=== PATIENT | female | born 1950 | race Caucasian/White ===

== ENCOUNTER 2017-10-05 08:01 | Outpatient (CLI) | payer OTHER | END 2017-10-05 08:04 | disposition home or self-care (01) | LOC: TOM 08:01 | DX: R31.1 Benign essential microscopic hematuria (principal); N28.1 Cyst of kidney, acquired ==

== ENCOUNTER 2017-10-05 08:05 | Outpatient (CLI) | payer OTHER | END 2017-10-05 08:09 | disposition home or self-care (01) | LOC: RAD 08:05 | DX: M15.8 Other polyosteoarthritis (principal); M25.551 Pain in right hip; M25.552 Pain in left hip; M46.1 Sacroiliitis, not elsewhere classified; M65.252 Calcific tendinitis, left thigh; M65.251 Calcific tendinitis, right thigh; M16.0 Bilateral primary osteoarthritis of hip ==

== ENCOUNTER 2018-04-22 10:40 | Outpatient (CLI) | payer OTHER | END 2018-04-22 10:46 | disposition home or self-care (01) | LOC: RAD 10:40 | DX: M77.31 Calcaneal spur, right foot (principal); E11.49 Type 2 diabetes mellitus with other diabetic neurological complication ==

== ENCOUNTER 2018-04-26 07:24 | Outpatient (CLI) | payer OTHER | END 2018-04-26 08:00 | disposition home or self-care (01) | LOC: NUCLEAR 07:24 | DX: I25.10 Atherosclerotic heart disease of native coronary artery without angina pectoris (principal); I11.9 Hypertensive heart disease without heart failure; E11.9 Type 2 diabetes mellitus without complications | CPT/HCPCS: 78452; 93017; A9500; J0153 ==

== ENCOUNTER 2018-11-01 09:05 | Outpatient (CLI) | payer OTHER | END 2018-11-01 09:14 | disposition home or self-care (01) | LOC: RAD 09:05 | DX: N20.0 Calculus of kidney (principal) ==

== ENCOUNTER 2019-03-21 09:23 | Outpatient (CLI) | payer OTHER | END 2019-03-21 09:27 | disposition home or self-care (01) | LOC: SONOGRAMA 09:23 | DX: D49.2 Neoplasm of unspecified behavior of bone, soft tissue, and skin (principal) ==

== ENCOUNTER 2020-02-13 10:18 | Emergency (ER) | payer OTHER ==
[~2020-02-13] VITALS: Ht 157.5 cm; Wt 76.2 kg
[2020-02-13] MEDS ORDERED: SYNTHROID100 MCG (10:37)
[2020-02-13] MEDS ORDERED: FORTAMET500 MG (10:37)
[2020-02-13] MEDS ORDERED: SYNTHROID112 MCG (10:39)
[2020-02-13] MEDS ORDERED: SINEMET 25-1001 EACH (10:39)
[2020-02-13] MEDS ORDERED: MIRAPEX0.5 MG (10:39)
[2020-02-13] MEDS ORDERED: ASPIR 8181 MG (10:40)
[2020-02-13] MEDS ORDERED: TOPROL XL50 M1 (10:40)
[2020-02-13] MEDS ORDERED: PRAVASTATIN SOD20 MG (10:40)
[2020-02-13] MEDS ORDERED: PREGABALIN75 MG (10:40)
[2020-02-13] MEDS ORDERED: PEPCID AC20 MG (10:40)
[2020-02-13] MEDS ORDERED: LODINE300 MG (10:41)
== END 2020-02-13 13:48 | disposition home or self-care (01) ==
LOC: ER 10:18
DX: S42.224A 2-part nondisplaced fracture of surgical neck of right humerus, initial encounter for closed fracture (principal); S00.83XA Contusion of other part of head, initial encounter; S70.01XA Contusion of right hip, initial encounter; S70.311A Abrasion, right thigh, initial encounter; W18.09XA Striking against other object with subsequent fall, initial encounter; Y93.89 Activity, other specified; Y92.018 Other place in single-family (private) house as the place of occurrence of the external cause; Y99.8 Other external cause status

== ENCOUNTER 2020-07-12 19:16 | Emergency (ER) | payer OTHER ==
[~2020-07-12] VITALS: Ht 157.5 cm; Wt 73.9 kg
[~2020-07-12 19:16] MED LIST: ASPIR 8181 MG; FORTAMET500 MG; LODINE300 MG; MIRAPEX0.5 MG; PEPCID AC20 MG; PRAVASTATIN SOD20 MG; PREGABALIN75 MG; SINEMET 25-1001 EACH; SYNTHROID100 MCG; SYNTHROID112 MCG; TOPROL XL50 M1
== END 2020-07-12 23:07 | disposition home or self-care (01) ==
LOC: ER 19:16
DX: K52.9 Noninfective gastroenteritis and colitis, unspecified (principal); E86.0 Dehydration; N39.0 Urinary tract infection, site not specified

== ENCOUNTER 2022-03-13 09:44 | Outpatient (CLI) | payer OTHER | END 2022-03-13 09:55 | disposition home or self-care (01) | LOC: MRI 09:44 | PROVIDERS: ATTEND Neuromusculoskeletal Medicine & OMM | DX: G90.4 Autonomic dysreflexia (principal); G20 Parkinson's disease | CPT/HCPCS: 70551 ==

== ENCOUNTER → 2023-06-18 | Outpatient (CLI) | payer OTHER | END | disposition home or self-care (01) | LOC: MRI 09:59 | PROVIDERS: ATTEND Neuromusculoskeletal Medicine & OMM | DX: F09 Unspecified mental disorder due to known physiological condition (principal); F03.90 Unspecified dementia, unspecified severity, without behavioral disturbance, psychotic disturbance, mood disturbance, and anxiety | CPT/HCPCS: 70551 ==

== ENCOUNTER 2023-09-08 12:36 | Outpatient (CLI) | payer OTHER | END 2023-09-08 12:37 | disposition home or self-care (01) | LOC: NUCLEAR 12:36 | DX: M89.9 Disorder of bone, unspecified (principal); I10 Essential (primary) hypertension; E03.9 Hypothyroidism, unspecified; E78.9 Disorder of lipoprotein metabolism, unspecified; E55.9 Vitamin D deficiency, unspecified; G62.9 Polyneuropathy, unspecified; E11.42 Type 2 diabetes mellitus with diabetic polyneuropathy; F41.9 Anxiety disorder, unspecified; M15.9 Polyosteoarthritis, unspecified ==

== ENCOUNTER 2023-11-24 09:44 | Outpatient (CLI) | payer OTHER | END 2023-11-24 09:52 | disposition home or self-care (01) | LOC: RAD 09:44 | PROVIDERS: ATTEND Internal Medicine Rheumatology | DX: M51.86 Other intervertebral disc disorders, lumbar region (principal); M25.552 Pain in left hip; M25.551 Pain in right hip ==

== ENCOUNTER 2025-03-28 12:47 | Inpatient (IN) | payer OTHER ==
[~2025-03-28] VITALS: Ht 152.4 cm; Wt 0.5 kg
--- NOTE | 2025-03-28 14:43 | NUR ---
PACIENTE ALERTA YORIENTADA X 3. REFIERE CAIDA EN NASH HOGAR ALREDEDOR DE LAS 10 AM, SE FUE DEFRENTE Y REFIERE DOLOR EN CADERA IZQ Y RODILLAS.
[2025-03-28] MEDS ORDERED: SINEMET 25-1001 EACH PO (14:45)
[2025-03-28] MEDS ORDERED: SYNTHROID75 MCG PO (14:46)
[2025-03-28] MEDS ORDERED: PRAVASTATIN SOD20 MG PO (14:47)
[2025-03-28] MEDS ORDERED: GLIMEPIRIDE2 MG (14:47)
[2025-03-28] MEDS ORDERED: VENLAFAXINE HCL75 M2 (14:48)
[2025-03-28] MEDS ORDERED: CHLORTHALIDONE25 MG PO (14:49)
[2025-03-28] MEDS ORDERED: OMEPRAZOLE-BIC1 EAC1 (14:50)
[2025-03-28] MEDS ORDERED: GALANTAMINE HBR24 MG PO (14:50)
[2025-03-28] MEDS ORDERED: ETODOLAC200 MG (14:51)
[2025-03-28] MEDS ORDERED: ABILIFY2 MG (14:51)
[2025-03-28] MEDS ORDERED: ACETAMINOPHEN 500 MG GEL..CAP PO ONE (15:30)
[2025-03-28] MEDS ORDERED: ORPHENADRINE CITRATE 30 MG/ML AMPUL IM ONE (15:30)
--- NOTE | 2025-03-28 16:44 | NUR ---
SE EDUCA ACERCA DE TX ORDENADO Y REFIERE ENTENDER. SE ADMINISTRAN MEDICAMENTOS LILLY ORDEN MEDICA.
--- NOTE | 2025-03-28 20:31 | NUR ---
SE CANALIZA Y COLECTAN MUESTRAS DE LABORATORIO MEDIANTE MEDIDAS ASEPTICAS. SE BRE ENVASE DE UA.
[2025-03-28 20:41] LABS: BASO % 0.3 % (0.1-1.2); EOS # 0.10 (0.04-0.54); EOS % 1.1 % (0.7-7.0); LYMPH # 1.98 (1.18-3.74); LYMPH % 22.7 % (19.3-53.1); MEAN PLATELET VOLUME 9.40 fl (9.4-12.4); MONO # 0.56 (0.24-0.82); MONO % 6.4 % (4.7-12.5); NEUT # 6.03 (1.56-6.13); NEUT % 69.0 % (34.0-71.1); RED CELL DISTRIBUTION WIDTH 11.9 % (11.6-14.4)
[2025-03-28 20:57] LABS: INR 1.05
[2025-03-28 21:02] LABS: ALT/SGPT 8.0 U/L (12-78); AST/SGOT 27.0 U/L (15-37); BILIRUBIN TOTAL 0.67 mg/dL (0.3-1.2); BUN CREA RATIO 26.0 (7.0-25.0); CREATININE SERUM 0.91 mg/dL (0.55-1.02); GFR 60.6; GLOBULINA 3.8 G/DL (2.4-3.5)
[2025-03-28 21:04] LABS: OSMOLALITY SERUM 277.0 MOSM/KG (275-295)
[2025-03-28 21:08] LABS: GLUCOSE FASTING 50.0 mg/dL (65-100)
[2025-03-28] MEDS ORDERED: POTASSIUM CHLORIDE IN WATER 100 ML IV SCH (21:23)
[2025-03-28 21:32] LABS: URINE APPEARANCE Clear; URINE BILIRRUBIN Negative (NEGATIVE); URINE BLOOD Negative; URINE COLOR Yellow; URINE GLUCOSE Negative (NEGATIVE); URINE KETONE Trace (NEGATIVE); URINE LEUKOCYTE Small; URINE NITRATE Negative; URINE PROTEIN Negative (NEGATIVE); URINE UROBILINOGEN 1.0 E.U./dl
[2025-03-28 21:37] LABS: URINE BACTERIA 427.1 uL (0.0-1933); URINE EPITHELIAL CELLS 23.6 uL (0.0-38.8); URINE WBC 17.5 uL (0.0-23.2)
[2025-03-28] MEDS ORDERED: CARBIDOPA/LEVODOPA 25/100 UDTAB PO SCH (21:42)
[2025-03-28] MEDS ORDERED: ONDANSETRON HCL 4 MG in 0.9 % SODIUM CHLORIDE 50 ML IV PRN (21:45)
[2025-03-28] MEDS ORDERED: INSULIN LISPRO 1,000 UNIT/10 ML UNITS SUBCUTANEO PRN (21:45)
[2025-03-28] MEDS ORDERED: ACETAMINOPHEN 500 MG GEL..CAP PO PRN (21:45)
[2025-03-28] MEDS ORDERED: DEXTROSE 50 % IN WATER 0.5 G/ML DISP.SYRIN IV PRN (21:45)
[2025-03-28] MEDS ORDERED: 0.9 % SODIUM CHLORIDE 1,000 ML IV SCH (21:45)
[2025-03-28 21:57] LABS: URINE CAST 0.00 uL (0.0-1.40); URINE RBC 1.9 uL (0.0-20.8)
[2025-03-28 22:57] VITALS: BP 167/67
[2025-03-28 23:46] LABS: COVID-19 AG NEGATIVE (NEGATIVE)
[2025-03-29 03:30] VITALS: BP 147/69; O2SAT 98
[2025-03-29] MEDS ORDERED: LEVOTHYROXINE SODIUM 75 MCG TABLET PO SCH (06:00)
[2025-03-29 08:00] VITALS: BP 118/73; O2SAT 95
[2025-03-29] MEDS ORDERED: METOPROLOL SUCCINATE 25 MG TAB.SR.24H PO SCH (09:00)
[2025-03-29] MEDS ORDERED: FAMOTIDINE/PF 20 MG in 0.9 % SODIUM CHLORIDE 8 ML IV PUSH SCH (09:00)
[2025-03-29] MEDS ORDERED: ATORVASTATIN CALCIUM 20 MG TABLET PO SCH (09:00)
[2025-03-29 12:13] VITALS: O2SAT 97
[2025-03-29] MEDS ORDERED: MORPHINE SULFATE 4 MG/ML CARTRIDGE IV PRN (13:45)
[2025-03-29 15:29] LABS: ALT/SGPT 7.0 U/L (12-78); AST/SGOT 29.0 U/L (15-37); BILIRUBIN TOTAL 1.1 mg/dL (0.3-1.2); BUN CREA RATIO 17.0 (7.0-25.0); CREATININE SERUM 0.77 mg/dL (0.55-1.02); GFR 73.48; GLOBULINA 3.7 G/DL (2.4-3.5); GLUCOSE FASTING 146.0 mg/dL (65-100); OSMOLALITY SERUM 282.0 MOSM/KG (275-295)
[2025-03-29 16:00] VITALS: BP 101/62; O2SAT 95
[2025-03-29] MEDS ORDERED: POTASSIUM CHLORIDE 10 MEQ CAPSULE PO SCH (17:00)
[2025-03-29] MEDS ORDERED: POTASSIUM CHLORIDE IN WATER 100 ML IV SCH (17:00)
[2025-03-29 18:00] VITALS: O2SAT 100
[2025-03-29 21:36] VITALS: O2SAT 100
[2025-03-29 21:52] LABS: ABG PH 7.431 (7.35-7.45); ABG PO2 120.7 mmHg (80-100); BICARBONATE 25.9 mmol/l (23-25)
[2025-03-29 22:54] LABS: o2 28 %
[2025-03-30 01:07] VITALS: O2SAT 99
[2025-03-30 05:26] VITALS: O2SAT 100
[2025-03-30 08:00] VITALS: BP 121/68; O2SAT 95
[2025-03-30] MEDS ORDERED: CEFAZOLIN SODIUM 1,000 MG VIAL IV SCH ×2 (08:00→17:00)
[2025-03-30 09:00] VITALS: O2SAT 100
[2025-03-30] MEDS ORDERED: BUPIVACAINE HCL/MPF 0.5% 30ML VIAL ONE (11:21)
[2025-03-30] MEDS ORDERED: LIDOCAINE HCL 1%/EPINEPHRINE 20ML VIAL IJ ONE (11:22)
[2025-03-30] MEDS ORDERED: CEFAZOLIN SODIUM 1,000 MG VIAL ONE (12:35)
[2025-03-30] MEDS ORDERED: TRAMADOL HCL 50 MG TABLET PO PRN (14:15)
[2025-03-30] MEDS ORDERED: SODIUM CHLORIDE 0.45 % 1,000 ML IV SCH (14:15)
[2025-03-30] MEDS ORDERED: ONDANSETRON HCL 2 MG/ML VIAL IV PRN (14:15)
[2025-03-30] MEDS ORDERED: ONDANSETRON 4 MG TAB.RAPDIS PO PRN (14:15)
[2025-03-30] MEDS ORDERED: PROMETHAZINE HCL 50 MG/ML AMPUL IM PRN (14:15)
[2025-03-30 18:38] VITALS: BP 146/64; O2SAT 96
[2025-03-30 20:37] VITALS: O2SAT 93
[2025-03-31 01:09] VITALS: BP 100/64; O2SAT 99
[2025-03-31 07:55] LABS: BASO % 0.3 % (0.1-1.2); EOS # 0.12 (0.04-0.54); EOS % 1.2 % (0.7-7.0); LYMPH # 1.03 (1.18-3.74); LYMPH % 10.6 % (19.3-53.1); MEAN PLATELET VOLUME 10.20 fl (9.4-12.4); MONO # 0.68 (0.24-0.82); MONO % 7.0 % (4.7-12.5); NEUT # 7.78 (1.56-6.13); NEUT % 80.4 % (34.0-71.1); RED CELL DISTRIBUTION WIDTH 12.1 % (11.6-14.4)
[2025-03-31] MEDS ORDERED: RIVAROXABAN 10 MG TAB PO SCH (09:00)
[2025-03-31] MEDS ORDERED: POTASSIUM CHLORIDE/D5-0.9%NACL 1,000 ML IV SCH (13:10)
[2025-03-31 16:00] VITALS: BP 104/65; O2SAT 95
[2025-03-31 22:24] VITALS: O2SAT 95
[2025-04-01 00:19] VITALS: O2SAT 97
[2025-04-01 01:40] VITALS: BP 116/66; O2SAT 96
[2025-04-01 08:04] LABS: BASO % 0.4 % (0.1-1.2); EOS # 0.25 (0.04-0.54); EOS % 3.0 % (0.7-7.0); LYMPH # 1.22 (1.18-3.74); LYMPH % 14.6 % (19.3-53.1); MEAN PLATELET VOLUME 10.20 fl (9.4-12.4); MONO # 0.74 (0.24-0.82); MONO % 8.9 % (4.7-12.5); NEUT # 6.07 (1.56-6.13); NEUT % 72.9 % (34.0-71.1); RED CELL DISTRIBUTION WIDTH 12.1 % (11.6-14.4)
[2025-04-01 08:30] VITALS: BP 116/64; O2SAT 94
[2025-04-01] MEDS ORDERED: SENNA/DOCUSATE SODIUM 1 TAB TABLET PO SCH (09:00)
[2025-04-01 13:10] LABS: BUN CREA RATIO 11.0 (7.0-25.0); CREATININE SERUM 0.81 mg/dL (0.55-1.02); GFR 69.31; GLUCOSE FASTING 164.0 mg/dL (65-100); OSMOLALITY SERUM 295.0 MOSM/KG (275-295)
[2025-04-01 16:00] VITALS: BP 118/57; O2SAT 95
[2025-04-01 17:14] VITALS: O2SAT 99
[2025-04-01 21:40] VITALS: O2SAT 95
[2025-04-02 00:40] VITALS: BP 107/60; O2SAT 96
[2025-04-02 07:50] LABS: BASO % 0.4 % (0.1-1.2); EOS # 0.19 (0.04-0.54); EOS % 2.6 % (0.7-7.0); LYMPH # 1.23 (1.18-3.74); LYMPH % 16.5 % (19.3-53.1); MEAN PLATELET VOLUME 9.60 fl (9.4-12.4); MONO # 0.62 (0.24-0.82); MONO % 8.3 % (4.7-12.5); NEUT # 5.35 (1.56-6.13); NEUT % 71.9 % (34.0-71.1); RED CELL DISTRIBUTION WIDTH 12.1 % (11.6-14.4)
[2025-04-02 08:59] VITALS: BP 133/69; O2SAT 96
[2025-04-02] MEDS ORDERED: POTASSIUM CHLORIDE IN WATER 100 ML IV NR (09:45)
[2025-04-02] MEDS ORDERED: MAGNESIUM SULFATE IN WATER 50 ML IV NR (09:45)
[2025-04-02] MEDS ORDERED: SPIRONOLACTONE 50 MG TABLET PO NR (10:00)
[2025-04-02] MEDS ORDERED: POTASSIUM CHLORIDE 10 MEQ CAPSULE PO SCH (13:00)
[2025-04-02 14:22] VITALS: O2SAT 87
[2025-04-02 16:46] VITALS: O2SAT 98
[2025-04-02 17:23] VITALS: BP 131/67; O2SAT 95
[2025-04-03 02:00] VITALS: BP 136/70; O2SAT 98
[2025-04-03 06:48] VITALS: O2SAT 96
[2025-04-03 06:59] LABS: BUN CREA RATIO 19.0 (7.0-25.0); CREATININE SERUM 0.54 mg/dL (0.55-1.02); GFR 110.66; GLUCOSE FASTING 111.0 mg/dL (65-100); OSMOLALITY SERUM 287.0 MOSM/KG (275-295)
[2025-04-03 08:03] VITALS: O2SAT 96
[2025-04-03 09:00] VITALS: BP 135/66; O2SAT 95
[2025-04-03] MEDS ORDERED: SPIRONOLACTONE 50 MG TABLET PO SCH (09:00)
== END 2025-04-03 17:27 | disposition home or self-care (01) | DRG 482 ==
LOC: ER 12:47 → SEC-K 22:44 → SURH 22:44
PROVIDERS: Emergency Medicine; General Practice; Orthopaedic Surgery; Student in an Organized Health Care Education/Training Program; ADMIT Internal Medicine; ATTEND Internal Medicine
PROC: BW28ZZZ Computerized Tomography (CT Scan) of Head (ICD-10-PCS; 2025-03-28)
PROC: 4A12X4Z Monitoring of Cardiac Electrical Activity, External Approach (ICD-10-PCS; 2025-03-29)
PROC: 0QS704Z Reposition Left Upper Femur with Internal Fixation Device, Open Approach (ICD-10-PCS; principal; 2025-03-30 07:00)
DX: S72.002A Fracture of unspecified part of neck of left femur, initial encounter for closed fracture (principal); E87.6 Hypokalemia; G20.A1 Parkinson's disease without dyskinesia, without mention of fluctuations; E03.9 Hypothyroidism, unspecified; E11.9 Type 2 diabetes mellitus without complications; Z79.4 Long term (current) use of insulin; I10 Essential (primary) hypertension; E78.5 Hyperlipidemia, unspecified; W13.3XXA Fall through floor, initial encounter; Y93.01 Activity, walking, marching and hiking; Y92.9 Unspecified place or not applicable

== ENCOUNTER 2025-04-19 09:04 | Outpatient (CLI) | payer OTHER ==
[~2025-04-19 09:04] MED LIST changes: +ABILIFY2 MG; +CHLORTHALIDONE25 MG PO; +ETODOLAC200 MG; +GALANTAMINE HBR24 MG PO; +GLIMEPIRIDE2 MG; +OMEPRAZOLE-BIC1 EAC1; +PRAVASTATIN SOD20 MG PO; +SINEMET 25-1001 EACH PO; +SYNTHROID75 MCG PO; +VENLAFAXINE HCL75 M2
== END 2025-04-19 09:09 | disposition home or self-care (01) ==
LOC: RAD 09:04
PROVIDERS: ATTEND Orthopaedic Surgery
DX: M25.552 Pain in left hip (principal)

== ENCOUNTER 2025-05-07 13:04 | Outpatient (CLI) | payer OTHER | END 2025-05-07 13:07 | disposition home or self-care (01) | LOC: RAD 13:04 | PROVIDERS: ATTEND Orthopaedic Surgery | DX: S72.032D Displaced midcervical fracture of left femur, subsequent encounter for closed fracture with routine healing (principal) ==

== ENCOUNTER 2025-06-08 06:59 | Outpatient (CLI) | payer OTHER ==
[2025-06-08 08:29] LABS: BASO % 0.7 % (0.1-1.2); EOS # 0.10 (0.04-0.54); EOS % 1.8 % (0.7-7.0); LYMPH # 1.64 (1.18-3.74); LYMPH % 29.7 % (19.3-53.1); MEAN PLATELET VOLUME 9.20 fl (9.4-12.4); MONO # 0.34 (0.24-0.82); MONO % 6.2 % (4.7-12.5); NEUT # 3.37 (1.56-6.13); NEUT % 61.1 % (34.0-71.1); RED CELL DISTRIBUTION WIDTH 11.9 % (11.6-14.4)
[2025-06-08 08:36] LABS: ERYTHROCYTE SEDIMENTATION RATE 11 mm/hr (0-30)
[2025-06-08 08:52] LABS: URINE APPEARANCE Clear; URINE BILIRRUBIN Negative (NEGATIVE); URINE BLOOD Negative; URINE COLOR Yellow; URINE GLUCOSE Negative (NEGATIVE); URINE KETONE Trace (NEGATIVE); URINE LEUKOCYTE Small; URINE NITRATE Negative; URINE PROTEIN Trace (NEGATIVE); URINE UROBILINOGEN 1.0 E.U./dl
[2025-06-08 08:55] LABS: URINE BACTERIA 845.7 uL (0.0-1933); URINE EPITHELIAL CELLS 42.9 uL (0.0-38.8); URINE RBC 7.0 uL (0.0-20.8); URINE WBC 27.3 uL (0.0-23.2)
[2025-06-08 09:13] LABS: COL EPI 73 SECONDS (82-175); D DIMER 0.74 MG/L; INR 1.04
[2025-06-08 09:14] LABS: AST/SGOT 10 U/L (15-37); BILIRUBIN TOTAL 0.50 mg/dL (0.3-1.2); BUN CREA RATIO 23 (7.0-25.0); CREATININE SERUM 0.82 mg/dL (0.55-1.02); GFR 68.33; GLOBULINA 3.3 G/DL (2.4-3.5); GLUCOSE FASTING 119 mg/dL (65-100); OSMOLALITY SERUM 288 MOSM/KG (275-295)
[2025-06-08 09:31] LABS: URINE CAST 1.02 uL (0.0-1.40)
[2025-06-08 09:39] LABS: ALT/SGPT < 6 U/L (12-78)
== END 2025-06-08 07:00 | disposition home or self-care (01) ==
LOC: LAB 06:59
PROVIDERS: ATTEND Orthopaedic Surgery
DX: D64.9 Anemia, unspecified (principal); E88.89 Other specified metabolic disorders; D68.8 Other specified coagulation defects; N39.0 Urinary tract infection, site not specified; Z22.322 Carrier or suspected carrier of Methicillin resistant Staphylococcus aureus; E11.9 Type 2 diabetes mellitus without complications; I10 Essential (primary) hypertension; Z76.89 Persons encountering health services in other specified circumstances; S72.032 Displaced midcervical fracture of left femur; M06.4 Inflammatory polyarthropathy

== ENCOUNTER 2025-06-18 08:30 | Outpatient (CLI) | payer OTHER | END 2025-06-18 08:34 | disposition home or self-care (01) | LOC: LAB 08:30 | PROVIDERS: ATTEND Orthopaedic Surgery | DX: E87.6 Hypokalemia (principal) ==

== ENCOUNTER 2025-07-19 10:09 | Outpatient (CLI) | payer OTHER | END 2025-07-19 10:11 | disposition home or self-care (01) | LOC: RAD 10:09 | PROVIDERS: ATTEND Orthopaedic Surgery | DX: Z96.642 Presence of left artificial hip joint (principal) ==